=== PATIENT | female | born 1950 | race Caucasian/White ===

== ENCOUNTER → 2016-08-15 | Outpatient (REF) | payer MEDICARE, OTHER ==
[~2016-08-15] MED LIST: ALPR0.25 OR; ASPI81TA31 OR; CEFT500T OR; CRES20TA OR; DYAZ37.5 OR; FISH1000 PO; IBUP600T OR; LISI20TA5 OR; MULTIVIT PO; OMEP20TA7 OR; VICO5TAB OR; VIT D 2000 PO; ZITH500T OR; meloxicam PO; triamterene-hctz PO
== END ==
LOC: M LAB REF 12:16
PROVIDERS: ATTEND Physician Assistant Medical
DX: N30.01 Acute cystitis with hematuria (principal)

== ENCOUNTER → 2016-09-04 | Outpatient (CLI) | payer MEDICARE, OTHER ==
[2016-09-04 13:43] LABS: ALBUMIN 3.5 GM/DL (3.2-5.2); ANION GAP 5 MEQ/L (8-16); BLOOD UREA NITROGEN 17 MG/DL (7-18); CALCIUM LEVEL 9.4 MG/DL (8.8-10.2); CARBON DIOXIDE LEVEL 36 MEQ/L (21-32); CHLORIDE LEVEL 102 MEQ/L (98-107); CREATININE FOR GFR 0.94 MG/DL (0.55-1.02); GLOMERULAR FILTRATION RATE > 60.0 (>45); GLUCOSE, FASTING 92 MG/DL (80-110); MAGNESIUM LEVEL 2.2 MG/DL (1.8-2.4); POTASSIUM SERUM 4.4 MEQ/L (3.5-5.1); SODIUM LEVEL 143 MEQ/L (136-145)
== END ==
LOC: M SMT 10:13
PROVIDERS: ATTEND Internal Medicine Cardiovascular Disease
DX: I11.9 Hypertensive heart disease without heart failure (principal)

== ENCOUNTER → 2016-09-14 | Outpatient (CLI) | payer MEDICARE, OTHER ==
[2016-09-14 13:32] LABS: ALBUMIN 3.2 GM/DL (3.2-5.2); ALBUMIN/GLOBULIN RATIO 0.82 (1.00-1.93); ALKALINE PHOSPHATASE 100 U/L (45-117); ALT/SGPT 43 U/L (12-78); AST/SGOT 25 U/L (15-37); BILIRUBIN,DIRECT < 0.1 MG/DL (0.0-0.2); BILIRUBIN,TOTAL 0.3 MG/DL (0.2-1.0); CHOLESTEROL LEVEL 177 MG/DL (<200); TOTAL PROTEIN 7.1 GM/DL (6.4-8.2); TRIGLYCERIDES LEVEL 324 MG/DL (<150)
== END ==
LOC: M SMT 08:43
PROVIDERS: ATTEND Internal Medicine Cardiovascular Disease
DX: E78.2 Mixed hyperlipidemia (principal)

== ENCOUNTER → 2016-11-07 | Outpatient (CLI) | payer MEDICARE, OTHER ==
--- NOTE | 2016-11-07 16:10 | REP ---
Clinical: Chest pain. History of congestive heart failure. Comparison: 08/28/2014 . Technique: PA and lateral. Findings: The mediastinum and cardiac silhouette are normal. The lung vidal are clear and without acute consolidation, effusion, or pneumothorax. The skeletal structures are intact and normal. Impression: 1. No acute cardiopulmonary process. Signed by Marlon Hubbard MD 11/07/2016 04:01 P
== END ==
LOC: M SMT 15:30
PROVIDERS: ATTEND Internal Medicine Cardiovascular Disease
DX: I50.32 Chronic diastolic (congestive) heart failure (principal)

== ENCOUNTER → 2016-12-27 | Outpatient (CLI) | payer MEDICARE, OTHER ==
--- NOTE | 2016-12-31 12:02 | SLEEPCENT ---
DATE OF PROCEDURE: 12/27/2016 REFERRING PHYSICIAN: Apolonia Harvey Nocturnal polysomnography was performed for evaluation of sleep apnea syndrome symptoms in this patient with a history of excessive somnolence and snoring. 8 hours and 34 minutes of data were reviewed. There were 272 minutes of sleep identified. Sleep latency was prolonged at 81 minutes. Rapid eye movement (REM) sleep was not achieved. Sleep architecture showed poor progression and significant fragmentation. Overall sleep efficiency was reduced to 53%. The patient's EKG showed a sinus rhythm with an average heart rate of 78 beats per minute. Heart rate ranged 68 to 82. EEG reasonably normal waveforms for awake and sleep. There were 133 respiratory events identified of 10 seconds in duration or greater for an apnea/hypopnea index of 29.3. The events were primarily obstructive, not exclusive to posture. Arousals from respiratory events occurred 15 times per hour and oxygen desaturations were seen into the 80s. There was also significant limb activity identified. Three to four trains of 30 events. Limb movement arousal index was 25.8. IMPRESSION: Obstructive sleep apnea syndrome (G47.33). Apnea/hypopnea index 29.3. Periodic limb movement disorder (G47.61). Limb movement arousal index 25.8. RECOMMENDATION: The patient should be encouraged to return to the sleep disorder center for pressure therapy. In the interim, alcohol and sedative avoidance should be practiced and caution exercised during the operation of motor vehicles. Pending response to pressure therapy, interventions to reduce the frequency of arousals from limb activity may also be helpful.
== END ==
LOC: M SLEEP HO 19:36
PROVIDERS: ATTEND Nurse Practitioner Adult Health
DX: G47.30 Sleep apnea, unspecified (principal); R40.0 Somnolence

== ENCOUNTER → 2017-01-24 | Outpatient (CLI) | payer MEDICARE, OTHER ==
--- NOTE | 2017-01-26 09:42 | SLEEPCENT ---
DATE OF PROCEDURE: 01/24/2017 REQUESTING PROVIDER: Apolonia Harvey NP INTERPRETATION: Nocturnal polysomnography was performed for the titration of pressure therapy in this patient with obstructive sleep apnea syndrome, apnea-hypopnea index of 29. For testing, the patient was fit with a Wickr Simplus full face mask of medium size, 4 cm of water pressure were applied to the circuit and the lights were extinguished. 8 hours and 10 minutes of data were reviewed. There were 391 minutes of sleep identified. Sleep latency was prolonged at 29 minutes. Rapid eye movement (REM) latency was prolonged at 401 minutes. Sleep architecture improved late in the study. Overall efficiency was 80.9%. The patient's electrocardiogram (EKG) showed a sinus rhythm with an average heart rate of 60 beats per minute. Occasional unifocal ventricular ectopic beats were seen. Electroencephalogram (EEG) showed fairly normal waveforms for awake and sleep. No focal events were identified. Respiratory events persisted prompting an increase in CPAP to the optimal pressure of +11, with which pressure the patient slept through REM late in the study without respiratory event or oxygen desaturation. Some limb activity was noted early in the test. Limb movement arousal index on this occasion remained elevated at 37.9. IMPRESSION: 1. Obstructive sleep apnea syndrome (G47.33). 2. Periodic limb movement disorder (G47.61). Limb movement arousal index of 37.9. RECOMMENDATIONS: Nightly use of pressure therapy at 12 cm of water should be sufficient to address the patient's respiratory problems. Interventions to reduce the frequency or arousals from limb activity will likely be needed given the frequency of limb movement arousals seen.
== END ==
LOC: M SLEEP 19:34
PROVIDERS: ATTEND Nurse Practitioner Adult Health
DX: G47.33 Obstructive sleep apnea (adult) (pediatric) (principal)

== ENCOUNTER → 2017-01-26 | Outpatient (CLI) | payer MEDICARE, OTHER ==
--- NOTE | 2017-01-26 12:57 | REP ---
Sniff test: Chest fluoroscopy. 31 seconds of fluoroscopy time was utilized. History: Obstructive sleep apnea. Shortness of breath since median sternotomy for coronary artery bypass grafting. Findings: On rapid inspiration at fluoroscopy, paradoxical motion is observed in the right hemidiaphragm consistent with right diaphragmatic paralysis. Normal motion is observed in the left hemidiaphragm. Impression: Paradoxical motion of the right hemidiaphragm with sniffing. Positive sniff test. Signed by Vishal Dumont MD 01/26/2017 02:48 P
== END ==
LOC: M RAD 10:50
PROVIDERS: ATTEND Internal Medicine Pulmonary Disease
DX: G47.33 Obstructive sleep apnea (adult) (pediatric) (principal)

== ENCOUNTER → 2017-03-25 | Outpatient (REF) | payer MEDICARE, OTHER | LOC: M LAB REF 09:51 | PROVIDERS: ATTEND Physician Assistant | DX: N39.0 Urinary tract infection, site not specified (principal) ==

== ENCOUNTER → 2017-03-27 | Outpatient (CLI) | payer MEDICARE, OTHER ==
[2017-03-27 13:20] LABS: ALBUMIN 3.4 GM/DL (3.2-5.2); ALBUMIN/GLOBULIN RATIO 0.81 (1.00-1.93); ALKALINE PHOSPHATASE 132 U/L (45-117); ALT/SGPT 30 U/L (12-78); ANION GAP 4 MEQ/L (8-16); AST/SGOT 18 U/L (7-37); BILIRUBIN,TOTAL 0.5 MG/DL (0.2-1.0); BLOOD UREA NITROGEN 30 MG/DL (7-18); CALCIUM LEVEL 9.6 MG/DL (8.8-10.2); CARBON DIOXIDE LEVEL 35 MEQ/L (21-32); CHLORIDE LEVEL 102 MEQ/L (98-107); CHOLESTEROL LEVEL 152 MG/DL (<200); CREATININE FOR GFR 0.85 MG/DL (0.55-1.02); GLOMERULAR FILTRATION RATE > 60.0 (>45); GLUCOSE, FASTING 95 MG/DL (80-110); POTASSIUM SERUM 4.3 MEQ/L (3.5-5.1); SODIUM LEVEL 141 MEQ/L (136-145); TOTAL PROTEIN 7.6 GM/DL (6.4-8.2); TRIGLYCERIDES LEVEL 204 MG/DL (<150)
== END ==
LOC: M SMT 09:16
PROVIDERS: ATTEND Physician Assistant Medical
DX: E78.5 Hyperlipidemia, unspecified (principal); M81.0 Age-related osteoporosis without current pathological fracture

== ENCOUNTER → 2017-04-17 | Outpatient (REF) | payer MEDICARE | LOC: M SMT 13:08 | PROVIDERS: ATTEND Nurse Practitioner Family | DX: R31.0 Gross hematuria (principal) ==

== ENCOUNTER → 2017-05-03 | Outpatient (CLI) | payer MEDICARE, OTHER ==
[~2017-05-03] MED LIST changes: +ISOVUE-370 76% 100ML VIAL (Q9967) As Ordered ONE
--- NOTE | 2017-05-03 13:47 | REP ---
CT ABDOMEN PELVIS WITHOUT AND WITH IV CONTRAST: Without oral contrast. HISTORY: Gross hematuria. CT CONTRAST DOSE: 100 mL of Isovue [address] FINDINGS: Preliminary digital high voltage electrician radiograph shows median sternotomy wires and right upper quadrant clips. Bowel gas pattern is normal. The lung bases are clear on axial CT images. There is a small zone of linear fibrosis in the right base. The liver and the spleen are normal in size and homogeneous in texture on pre- and postcontrast images. There is mild diffuse fatty infiltration of the liver. No adrenal lesion is seen. There are clips in the gallbladder fossa. No pancreatic lesion is observed. There is an area of postoperative fat necrosis in the subcutaneous fat anterior to the inferior margin of the sternotomy. No retroperitoneal mass or adenopathy is seen. Kidneys enhance symmetrically. There is a peripheral cyst in the upper pole right kidney measuring 1.5 cm in greatest diameter. A second right upper pole cyst is also noted 1.1 cm in greatest diameter. There is a 1.1 cm cyst in the lower pole of the left kidney. No hydronephrosis is seen. No renal mass lesion is observed. No bladder mass is visible. The bladder is largely empty at the time of scanning. Delayed images show no filling defect in the urinary bladder. No filling defect is seen in the ureters or renal collecting systems. No intrarenal calculus is observed on either side. No pelvic mass or adenopathy is seen. Small and large intestinal bowel loops are normal in the abdomen and pelvis. No uterine or ovarian lesion is seen. Bone window settings show degenerative changes in the lumbar spine. No bony destructive lesion. IMPRESSION: There are several small renal cysts noted affecting both kidneys. No intrarenal calculus is seen. No hydronephrosis or mass lesion is observed. Signed by Vishal Dumont MD 05/03/2017 03:59 P
== END ==
LOC: M RAD 09:29
PROVIDERS: ATTEND Nurse Practitioner Family
DX: R31.0 Gross hematuria (principal); N28.1 Cyst of kidney, acquired
CPT/HCPCS: 74178; Q9967

== ENCOUNTER → 2017-05-18 | Outpatient (CLI) | payer MEDICARE, OTHER ==
[2017-05-18 18:17] LABS: CREATININE FOR GFR 0.89 MG/DL (0.55-1.02); GLOMERULAR FILTRATION RATE > 60.0 (>45)
[2017-05-18 18:17] LABS: BLOOD UREA NITROGEN 24 MG/DL (7-18)
== END ==
LOC: M SMT 10:02
DX: R91.8 Other nonspecific abnormal finding of lung field (principal)
CPT/HCPCS: 82565

== ENCOUNTER → 2017-05-21 | Outpatient (CLI) | payer MEDICARE, OTHER ==
[~2017-05-21] MED LIST changes: -ALPR0.25 OR; -ASPI81TA31 OR; -CEFT500T OR; -CRES20TA OR; -DYAZ37.5 OR; -FISH1000 PO; -IBUP600T OR; +ISOVUE-370 76% 100ML VIAL (Q9967) As Ordered; -ISOVUE-370 76% 100ML VIAL (Q9967) As Ordered ONE; -LISI20TA5 OR; -MULTIVIT PO; -OMEP20TA7 OR; -VICO5TAB OR; -VIT D 2000 PO; -ZITH500T OR; -meloxicam PO; -triamterene-hctz PO
== END ==
LOC: M RAD 09:14
DX: R91.8 Other nonspecific abnormal finding of lung field (principal)
CPT/HCPCS: Q9967

== ENCOUNTER → 2017-07-19 | Outpatient (CLI) | payer MEDICARE, OTHER ==
[2017-07-19 14:11] LABS: BASO % 0.6 % (0.0-1.0); EOS # 0.2 10^3/uL (0.0-0.50); EOS % 3.4 % (0.0-3.0); HEMATOCRIT 41.5 % (36.0-47.0); HEMOGLOBIN 13.3 g/dl (12.0-16.0); IMMATURE GRANULOCYTE % 0.4 % (0-3.0); LYMPH # 1.8 10^3/uL (1.5-4.5); LYMPH % 25.8 % (24.0-44.0); MEAN CORPUSCULAR HEMOGLOBIN 29.6 pg (27.0-33.0); MEAN CORPUSCULAR VOLUME 92.2 fl (80.0-96.0); MONO # 0.5 10^3/uL (0.0-0.8); NEUTROPHILS # 4.4 10^3/uL (1.8-7.7); NEUTROPHILS % 62.8 % (36.0-66.0); PLATELET COUNT, AUTOMATED 274 10^3/uL (150-450); RED CELL DISTRIBUTION WIDTH 14.9 % (11.5-14.5)
== END ==
LOC: M SMT 12:05
DX: R07.2 Precordial pain (principal)
CPT/HCPCS: 85027

== ENCOUNTER → 2017-10-24 | Outpatient (REF) | payer MEDICARE, OTHER | LOC: M LAB REF 12:26 | DX: N39.0 Urinary tract infection, site not specified (principal) | CPT/HCPCS: 87086 ==

== ENCOUNTER → 2018-02-11 | Outpatient (CLI) | payer MEDICARE, OTHER ==
[2018-02-11 14:31] LABS: ALBUMIN 3.5 GM/DL (3.2-5.2); ALBUMIN/GLOBULIN RATIO 0.92 (1.00-1.93); ALKALINE PHOSPHATASE 110 U/L (45-117); ALT/SGPT 47 U/L (12-78); ANION GAP 6 MEQ/L (8-16); AST/SGOT 28 U/L (7-37); BILIRUBIN,TOTAL 0.5 MG/DL (0.2-1.0); BLOOD UREA NITROGEN 23 MG/DL (7-18); CALCIUM LEVEL 9.5 MG/DL (8.8-10.2); CARBON DIOXIDE LEVEL 32 MEQ/L (21-32); CHLORIDE LEVEL 105 MEQ/L (98-107); CHOLESTEROL LEVEL 131 MG/DL (<200); CHOLESTEROL RISK RATIO 4.366 (<5); CREATININE FOR GFR 0.88 MG/DL (0.55-1.30); GLOMERULAR FILTRATION RATE > 60.0 (>45); GLUCOSE, FASTING 86 MG/DL (70-100); HDL CHOLESTEROL 30 MG/DL (>40); LDL CHOLESTEROL 63 MG/DL (<100); NON-HDL-C 101 MG/DL; POTASSIUM SERUM 4.4 MEQ/L (3.5-5.1); SODIUM LEVEL 143 MEQ/L (136-145); TOTAL PROTEIN 7.3 GM/DL (6.4-8.2); TRIGLYCERIDES LEVEL 188 MG/DL (<150)
[2018-02-11 14:38] LABS: TOTAL 25(OH) VITAMIN D 36.3 NG/ML (30.0-100.0)
== END ==
LOC: M SMT 09:40
DX: I10 Essential (primary) hypertension (principal); M81.0 Age-related osteoporosis without current pathological fracture
CPT/HCPCS: 80053

== ENCOUNTER → 2018-03-22 | Outpatient (REF) | payer MEDICARE, OTHER | LOC: M LAB REF 12:43 | DX: R35.0 Frequency of micturition (principal) | CPT/HCPCS: 87086 ==

== ENCOUNTER → 2018-06-11 | Outpatient (CLI) | payer MEDICARE, OTHER ==
[~2018-06-11] MED LIST changes: +ALPR0.25 OR; +ASPI81TA31 OR; +CEFT500T OR; +CRES20TA OR; +DYAZ37.5 OR; +FISH1000 PO; +IBUP600T OR; -ISOVUE-370 76% 100ML VIAL (Q9967) As Ordered; +LISI20TA5 OR; +MULTIVIT PO; +OMEP20TA7 OR; +VICO5TAB OR; +VIT D 2000 PO; +ZITH500T OR; +meloxicam PO; +triamterene-hctz PO
[2018-06-11 13:34] LABS: BASO # 0.1 10^3/uL (0.0-0.2); BASO % 0.9 % (0.0-1.0); EOS # 0.3 10^3/uL (0.0-0.50); EOS % 4.4 % (0.0-3.0); HEMATOCRIT 41.9 % (36.0-47.0); HEMOGLOBIN 13.2 g/dl (12.0-15.5); LYMPH # 1.6 10^3/uL (1.5-4.5); MEAN CORPUSCULAR HEMOGLOBIN 30.5 pg (27.0-33.0); MEAN CORPUSCULAR HGB CONC 31.5 g/dl (32.0-36.5); MEAN CORPUSCULAR VOLUME 96.8 fl (80.0-96.0); MONO # 0.5 10^3/uL (0.0-0.8); MONO % 6.8 % (0.0-5.0); NEUTROPHILS # 4.5 10^3/uL (1.8-7.7); NEUTROPHILS % 64.8 % (36.0-66.0); PLATELET COUNT, AUTOMATED 236 10^3/uL (150-450); RED BLOOD COUNT 4.33 10^6/uL (4.00-5.40); WHITE BLOOD COUNT 6.9 10^3/uL (4.0-10.0)
[2018-06-11 13:49] LABS: ALBUMIN 3.3 GM/DL (3.2-5.2); ALT/SGPT 48 U/L (12-78); BILIRUBIN,TOTAL 0.4 MG/DL (0.2-1.0); BLOOD UREA NITROGEN 23 MG/DL (7-18); CALCIUM LEVEL 8.9 MG/DL (8.8-10.2); CARBON DIOXIDE LEVEL 31 MEQ/L (21-32); CHLORIDE LEVEL 103 MEQ/L (98-107); CHOLESTEROL LEVEL 133 MG/DL (<200); CHOLESTEROL RISK RATIO 4.925 (<5); CREATININE FOR GFR 0.89 MG/DL (0.55-1.30); GLOMERULAR FILTRATION RATE > 60.0 (>39); GLUCOSE, FASTING 103 MG/DL (70-100); HDL CHOLESTEROL 27 MG/DL (>40); LDL CHOLESTEROL 65 MG/DL (<100); NON-HDL-C 106 MG/DL; POTASSIUM SERUM 4.5 MEQ/L (3.5-5.1); SODIUM LEVEL 142 MEQ/L (136-145); TOTAL 25(OH) VITAMIN D 50.2 NG/ML (30.0-100.0); TOTAL PROTEIN 7.3 GM/DL (6.4-8.2); TRIGLYCERIDES LEVEL 203 MG/DL (<150)
== END ==
LOC: M SMT 09:39
PROVIDERS: ATTEND Physician Assistant Medical
DX: I10 Essential (primary) hypertension (principal); M81.0 Age-related osteoporosis without current pathological fracture; R42 Dizziness and giddiness

== ENCOUNTER → 2018-06-19 | Outpatient (CLI) | payer MEDICARE, OTHER ==
--- NOTE | 2018-06-19 15:32 | REP ---
Chest fluoroscopy: Sniff test. History: Previous sniff test on January 26, 2017 was felt to show paradoxical movement of the right hemidiaphragm. The patient is status post prior median sternotomy. Fluoroscopy time is 0.3 minutes. Findings: On today's imaging the right hemidiaphragm was felt to move in the normal direction although with decreased amplitude compared to the left during inspiration. This represents significant improvement. Impression: Decreased amplitude but normal direction of right diaphragmatic motion with inspiration. Normal left diaphragmatic motion. Electronically Signed by Vishal Dumont MD 06/19/2018 07:19 P
== END ==
LOC: M RAD 12:15
PROVIDERS: ATTEND Internal Medicine Pulmonary Disease
DX: J45.40 Moderate persistent asthma, uncomplicated (principal)

== ENCOUNTER 2018-09-23 11:33 | Emergency (ER) | payer MEDICARE, OTHER ==
[~2018-09-23] VITALS: Ht 167.6 cm; Wt 131.8 kg
[2018-09-23] MEDS ORDERED: CHLO125TA (11:51)
[2018-09-23] MEDS ORDERED: SPIR-10 (11:51)
[2018-09-23] MEDS ORDERED: ELIQ5TAB (11:51)
[2018-09-23] MEDS ORDERED: TRAM50TA2 (11:51)
[2018-09-23] MEDS ORDERED: ATOR40TA75 PO (11:51)
[2018-09-23] MEDS ORDERED: METO50TA7 (11:51)
[2018-09-23] MEDS ORDERED: LOSA50TA88 (11:51)
[2018-09-23] MEDS ORDERED: ALEN70TA74 (11:51)
[2018-09-23 12:09] LABS: BASO # 0.1 10^3/uL (0.0-0.2); BASO % 0.7 % (0.0-1.0); EOS # 0.2 10^3/uL (0.0-0.50); EOS % 2.9 % (0.0-3.0); HEMATOCRIT 42.5 % (36.0-47.0); LYMPH # 1.5 10^3/uL (1.5-4.5); LYMPH % 21.7 % (24.0-44.0); MEAN CORPUSCULAR HEMOGLOBIN 31.7 pg (27.0-33.0); MEAN CORPUSCULAR HGB CONC 32.9 g/dl (32.0-36.5); MEAN CORPUSCULAR VOLUME 96.4 fl (80.0-96.0); MONO # 0.4 10^3/uL (0.0-0.8); MONO % 6.4 % (0.0-5.0); NEUTROPHILS # 4.7 10^3/uL (1.8-7.7); PLATELET COUNT, AUTOMATED 256 10^3/uL (150-450); RED BLOOD COUNT 4.41 10^6/uL (4.00-5.40); WHITE BLOOD COUNT 6.9 10^3/uL (4.0-10.0)
--- NOTE | 2018-09-23 12:17 | ECGEPIP ---
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
[2018-09-23 12:35] LABS: BLOOD UREA NITROGEN 22 MG/DL (7-18); CALCIUM LEVEL 8.9 MG/DL (8.8-10.2); CARBON DIOXIDE LEVEL 33 MEQ/L (21-32); CHLORIDE LEVEL 106 MEQ/L (98-107); CK-MB VALUE MASS < 1.0 NG/ML (<3.6); CPK CREATINE PHOSPHOKINASE 55 U/L (26-192); CREATININE FOR GFR 0.89 MG/DL (0.55-1.30); GLOMERULAR FILTRATION RATE > 60.0 (>39); GLUCOSE, FASTING 97 MG/DL (70-100); MB/CK RELATIVE INDEX 1.82 (< OR =4); NT-PRO BNP 35 PG/ML (<125); POTASSIUM SERUM 3.6 MEQ/L (3.5-5.1); SODIUM LEVEL 143 MEQ/L (136-145); TROPONIN I < 0.02 NG/ML (< 0.10)
--- NOTE | 2018-09-23 12:40 | REP ---
Chest one-view HISTORY: Chest pain Comparison: 07/19/2017 The lungs are clear. The heart is normal in size. The pulmonary vasculature is normal in appearance. Impression: No acute disease. Electronically Signed by Gómez Almanza MD 09/23/2018 12:32 P
[2018-09-23] MEDS ORDERED: ISOVUE-370 76% 100ML VIAL (Q9967) As Ordered ONE (13:35)
--- NOTE | 2018-09-23 14:42 | REP ---
CT pulmonary angiogram: With IV contrast. History: Rule out pulmonary embolism. Comparison studies: Comparison chest CT May 21, 2017. Contrast dose: 75 mL of Isovue [address] technique: Helical scanning is acquired and overlapping 1.5 mm and contiguous 3 mm axial images are reformatted. In addition, maximum intensity projection and multiplanar re-formation images are generated in sagittal and coronal imaging projections. CT pulmonary angiographic findings: There is good opacification of the pulmonary arterial tree. There is no CT evidence of pulmonary embolus. Thoracic aorta shows vascular calcification but no evidence of aneurysm or dissection. Prior median sternotomy wires are seen. There is no evidence of pleural or pericardial effusion. No hilar or mediastinal mass or adenopathy is observed. No adrenal lesion is seen. The gallbladder is surgically absent. There are multiple tiny stable subcentimeter pulmonary nodules. No new pulmonary opacity is seen. Impression: No CT evidence of pulmonary embolus. Vascular calcification. Prior sternotomy. Stable pulmonary nodules. No acute changes. Electronically Signed by Vishal Dumont MD 09/23/2018 07:31 P
[2018-09-23 15:26] LABS: CK-MB VALUE MASS < 1.0 NG/ML (<3.6); CPK CREATINE PHOSPHOKINASE 56 U/L (26-192); MB/CK RELATIVE INDEX 1.79 (< OR =4); TROPONIN I < 0.02 NG/ML (< 0.10)
[2018-09-23 15:45] VITALS: BP 140/67
[2018-09-23] MEDS ORDERED: PROT1TAB2 PO (16:10)
--- NOTE | 2018-09-24 07:19 | ECGEPIP ---
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
== END 2018-09-23 16:27 | disposition home or self-care (01) ==
LOC: M ED 11:33
DX: R07.89 Other chest pain (principal); I48.91 Unspecified atrial fibrillation; I25.10 Atherosclerotic heart disease of native coronary artery without angina pectoris; I50.9 Heart failure, unspecified; G47.33 Obstructive sleep apnea (adult) (pediatric); K21.9 Gastro-esophageal reflux disease without esophagitis; F41.9 Anxiety disorder, unspecified; Z95.1 Presence of aortocoronary bypass graft; Z88.7 Allergy status to serum and vaccine; Z79.899 Other long term (current) drug therapy; Z79.82 Long term (current) use of aspirin; Z79.01 Long term (current) use of anticoagulants
CPT/HCPCS: 71045; 71275; 80048; 82550; 82553; 83880; 84484; 85025; 93005; 93041; 94760; 99285; Q9967

== ENCOUNTER → 2019-01-27 | Outpatient (CLI) | payer MEDICARE, OTHER ==
[~2019-01-27] MED LIST changes: +ALEN70TA74; +ATOR40TA75 PO; +CHLO125TA; +ELIQ5TAB; +LOSA50TA88; +METO50TA7; +PROT1TAB2 PO; +SPIR-10; +TRAM50TA2
[2019-01-27 14:21] LABS: HEMOGLOBIN A1c 5.3 %
[2019-01-27 14:24] LABS: BLOOD UREA NITROGEN 21 MG/DL (7-18); CALCIUM LEVEL 9.5 MG/DL (8.8-10.2); CARBON DIOXIDE LEVEL 31 MEQ/L (21-32); CHLORIDE LEVEL 105 MEQ/L (98-107); CREATININE FOR GFR 0.91 MG/DL (0.55-1.30); FREE T4 1.04 NG/DL (0.76-1.46); GLOMERULAR FILTRATION RATE > 60.0 (>39); GLUCOSE, FASTING 96 MG/DL (70-100); POTASSIUM SERUM 4.5 MEQ/L (3.5-5.1); SODIUM LEVEL 143 MEQ/L (136-145)
== END ==
LOC: M SMT 10:56
PROVIDERS: ATTEND Physician Assistant Medical
DX: R94.6 Abnormal results of thyroid function studies (principal); R73.01 Impaired fasting glucose

== ENCOUNTER → 2019-07-09 | Outpatient (CLI) | payer MEDICARE, OTHER ==
--- NOTE | 2019-07-09 14:55 | REP ---
CAROTID ULTRASOUND: Real-time ultrasound evaluation and duplex Doppler interrogation of the extracranial carotid vasculature is performed. Moderate plaquing and narrowing is seen in the carotid bulbs bilaterally extending into the internal and external carotid arteries. There is mild elevation with peak systolic velocity in the right internal carotid artery suggesting stenosis in the lower aspect of the 50-79% range. Luminal narrowing on the left is less than 50% with on elevated peak systolic velocity. There is normal direction of flow in both vertebral arteries. There are nodules in the right lobe of the thyroid measuring up to 1 cm in diameter. RIGHT LEFT Peak systolic velocity ICA 128 cm/s 96.6 cm/s End diastolic velocity ICA 29.4 cm/s 29.1 cm/s Peak systolic velocity CCA 64.1 cm/s 82.6 cm/s Peak systolic velocity ECA 302 cm/s 215 cm/s ICA/CCA ratio 2.0 1.17 IMPRESSION: Moderate plaquing and narrowing in both carotid bulbs and internal carotid arteries. Findings suggesting stenosis of the right ICA 50-79%, in the lower aspect of that range. Luminal narrowing left ICA less than 50%. Right thyroid nodules measuring up to 1 cm in diameter. Recommend followup thyroid ultrasound. Electronically Signed by Rogerio Odonnell MD 07/09/2019 03:28 P
== END ==
LOC: M RAD 10:31
PROVIDERS: ATTEND Physician Assistant
DX: I65.23 Occlusion and stenosis of bilateral carotid arteries (principal)

== ENCOUNTER → 2019-07-22 | Outpatient (CLI) | payer MEDICARE, OTHER ==
[~2019-07-22] MED LIST changes: +ISOVUE-370 76% 100ML VIAL (Q9967) As Ordered ONE
--- NOTE | 2019-07-22 13:35 | REP ---
CT chest without contrast: Low-dose screening exam. History: Nicotine dependence. Comparison chest CT studies are reviewed. The most recent of these is from September 23, 2018. The most remote is from November 27, 2003. CT findings: There are multiple tiny subcentimeter calcified and noncalcified pulmonary nodules which are unchanged from prior CT studies dating back to September 24, 2014. No new pulmonary nodule is appreciated. Vascular calcification is observed. Impression: Lung-RADS category 2 findings. Repeat screening study recommended in 1 year. Electronically Signed by Vishal Dumont MD 07/22/2019 03:44 P
== END ==
LOC: M RAD 10:02
PROVIDERS: ATTEND Internal Medicine Pulmonary Disease
DX: F17.218 Nicotine dependence, cigarettes, with other nicotine-induced disorders (principal)

== ENCOUNTER → 2019-07-22 | Outpatient (CLI) | payer MEDICARE, OTHER ==
[~2019-07-22] MED LIST changes: -ISOVUE-370 76% 100ML VIAL (Q9967) As Ordered ONE
--- NOTE | 2019-07-22 11:56 | REP ---
THYROID SONOGRAPHY: HISTORY: Nontoxic single thyroid nodule. FINDINGS: Thyroid isthmus is 0.3 cm in thickness. Right lobe dimensions by ultrasound are 4.5 x 2.1 x 1.5 cm. Left lobe measures 3.8 x 1.7 x 1.7 cm. There are two complex but predominantly cystic nodule in the right thyroid lobe. These measure 1.2 x 0.7 x 0.8 cm and 0.5 x 0.7 x 0.5 cm respectively. There is a 0.3 cm cyst in the left lobe and a 0.4 cm hypoechoic nodule is seen adjacent to this in the left lobe. No sonographically suspicious features in any of these foci. IMPRESSION: Multinodular thyroid. Electronically Signed by Vishal Dumont MD 07/22/2019 12:57 P
== END ==
LOC: M RAD 09:59
PROVIDERS: ATTEND Physician Assistant
DX: E04.1 Nontoxic single thyroid nodule (principal)

== ENCOUNTER → 2019-09-23 | Outpatient (REF) | payer OTHER ==
[~2019-09-23] MED LIST changes: -ALEN70TA74; +ALEN70TA82
== END ==
LOC: M LAB REF 13:15
PROVIDERS: ATTEND Physical Medicine & Rehabilitation
DX: M47.817 Spondylosis without myelopathy or radiculopathy, lumbosacral region (principal)

== ENCOUNTER → 2019-12-11 | Outpatient (REF) | payer OTHER ==
[~2019-12-11] MED LIST changes: +ALEN70TA74; -ALEN70TA82
[2020-01-06 22:45] LABS: PLATELET COUNT, AUTOMATED 253 10^3/uL (150-450)
[2020-01-06 22:46] LABS: INR 1.19; PARTIAL THROMBOPLASTIN TIME 37.9 SECONDS (25.0-38.4); PROTHROMBIN TIME 15.4 SECONDS (11.8-14.0)
== END ==
LOC: M LABSMT 09:34
PROVIDERS: ATTEND Physician Assistant
DX: Z01.812 Encounter for preprocedural laboratory examination (principal); M47.817 Spondylosis without myelopathy or radiculopathy, lumbosacral region
CPT/HCPCS: 36415; 85027; 85610; 85730; U0002

== ENCOUNTER → 2020-01-15 | Outpatient (REF) | payer MEDICARE, OTHER ==
[2020-01-15 17:25] LABS: ALBUMIN 3.2 GM/DL (3.2-5.2); ALT/SGPT 36 U/L (12-78); BILIRUBIN,TOTAL 0.4 MG/DL (0.2-1.0); BLOOD UREA NITROGEN 21 MG/DL (7-18); CARBON DIOXIDE LEVEL 31 MEQ/L (21-32); CHLORIDE LEVEL 107 MEQ/L (98-107); CHOLESTEROL LEVEL 142 MG/DL (<200); CREATININE FOR GFR 0.93 MG/DL (0.55-1.30); GLOMERULAR FILTRATION RATE > 60.0 (>39); GLUCOSE, FASTING 90 MG/DL (70-100); HDL CHOLESTEROL 31 MG/DL (>40); LDL CHOLESTEROL 73 MG/DL (<100); NON-HDL-C 111 MG/DL; POTASSIUM SERUM 4.2 MEQ/L (3.5-5.1); SODIUM LEVEL 143 MEQ/L (136-145); TOTAL PROTEIN 7.2 GM/DL (6.4-8.2); TRIGLYCERIDES LEVEL 188 MG/DL (<150)
== END ==
LOC: M LABDRWAD 08:42
PROVIDERS: ATTEND Physician Assistant Medical
DX: E78.2 Mixed hyperlipidemia (principal)

== ENCOUNTER → 2020-01-20 | Outpatient (REF) | payer MEDICARE, OTHER ==
[2020-01-20 18:43] LABS: HEMATOCRIT 44.7 % (36.0-47.0); HEMOGLOBIN 14.7 g/dl (12.0-15.5); MEAN CORPUSCULAR HEMOGLOBIN 30.8 pg (27.0-33.0); MEAN CORPUSCULAR HGB CONC 32.9 g/dl (32.0-36.5); MEAN CORPUSCULAR VOLUME 93.7 fl (80.0-96.0); PLATELET COUNT, AUTOMATED 288 10^3/uL (150-450); RED BLOOD COUNT 4.77 10^6/uL (4.00-5.40)
== END ==
LOC: M LABDRWAD 17:47
PROVIDERS: ATTEND Physician Assistant
DX: I48.0 Paroxysmal atrial fibrillation (principal); Z79.01 Long term (current) use of anticoagulants

== ENCOUNTER → 2020-02-22 | Outpatient (CLI) | payer OTHER | LOC: M LABSMTC 08:27 | PROVIDERS: ATTEND Physical Medicine & Rehabilitation | DX: Z20.828 Contact with and (suspected) exposure to other viral communicable diseases (principal) ==

== ENCOUNTER → 2020-04-13 | Outpatient (CLI) | payer BC, OTHER ==
--- NOTE | 2020-04-16 04:50 | REP ---
INDICATION: CLAUDICATION COMPARISON: None. TECHNIQUE: Real time childs scale and color Doppler evaluation of the bilateral lower extremity arterial vasculature using linear high frequency transducer. FINDINGS: The right common iliac artery demonstrates biphasic wave pattern and velocity at 125 cm/sec while the left common iliac artery demonstrates a monophasic wave pattern with velocity at 96 cm/sec suggesting asymmetric atherosclerotic changes. Right external iliac artery demonstrates biphasic wave pattern and velocity at 116 cm/sec while the left external iliac artery demonstrates a tardus parvus wave pattern and velocity at 41 cm/sec suggesting asymmetric atherosclerotic changes and likely area of stenosis. Right lower extremity demonstrates moderate atheromatous plaquing with primarily biphasic arterial wave patterns noted. The right anterior tibial artery is not visualized. No focal areas of stenosis or occlusion are identifiable. Left lower extremity demonstrates moderate atheromatous plaquing along with monophasic wave patterns having a tardus parvus appearance from the level of the common femoral artery with significantly decreased velocities suggesting upstream disease likely involving the iliac artery. The left anterior tibial artery is not visualized and the dorsalis pedis artery is not identifiable. No focal area of stenosis or occlusion is appreciated. Peak systolic velocities (cm/sec) Common femoral artery: Right 103; Left 43 Profunda femoris: Right 95; Left 36 SFA (proximal): Right 115; Left 51 SFA (mid): Right 92; Left 41 SFA (distal): Right 120; Left 37 Popliteal artery: Right 57; Left 34 JANE (prox.): Right not visualized; Left not visualized Tibioperoneal trunk: Right 45; Left 24 COLLECTION AGENT (prox.): Right 41; Left 20 COLLECTION AGENT (distal): Right 86; Left 21 JANE (distal): Right not visualized; Left not visualized IMPRESSION: Lower extremities demonstrate bilateral atheromatous changes (left greater than right). Asymmetric atherosclerotic disease primarily involving the left iliac artery. <Electronically signed by Marlon Hubbard > 04/16/20 1024
--- NOTE | 2020-04-16 04:56 | REP ---
INDICATION: OCCLUSION COMPARISON: 07/09/2019 TECHNIQUE: Odonnell scale and color Doppler evaluation using linear high frequency transducer Findings: FINDINGS: Two-dimensional odonnell scale and color images demonstrate significant calcified atheromatous plaquing primarily involving the carotid bulbs and proximal portions of the internal and external carotid arteries (right greater than left). Doppler evaluation demonstrates arterial wave patterns with significant spectral broadening bilaterally. ICA peak systolic velocity: Right 188 cm/s; Left 96.7 cm/s ICA diastolic velocity: Right 44.4 cm/s; Left 28.3 cm/s ECA peak systolic velocity: Right 284 cm/s; Left 229 cm/s CCA peak systolic velocity: Right 92.6 cm/s; Left 137 cm/s ICA/CCA ratio: Right 2.0 cm/s; Left 0.7 cm/s IMPRESSION: 1. Significant atheromatous plaquing noted bilaterally. Narrowing through the right carotid bulb and proximal internal carotid artery approaches the 69% range while narrowing through the left carotid bulb and proximal internal carotid artery falls within the lower spectrum of the 50-69% range. 2. Significant narrowing through the right external carotid artery is also identified and similar to prior examination. 3. Incidental stable hypoechoic right thyroid nodule measures 1.2 cm. <Electronically signed by Marlon Hubbard > 04/16/20 045
== END ==
LOC: M RAD 12:39
PROVIDERS: ATTEND Physician Assistant
DX: I70.213 Atherosclerosis of native arteries of extremities with intermittent claudication, bilateral legs (principal); I65.23 Occlusion and stenosis of bilateral carotid arteries

== ENCOUNTER → 2020-04-19 | Outpatient (CLI) | payer BC, OTHER ==
[2020-04-19 14:03] LABS: BLOOD UREA NITROGEN 19 MG/DL (7-18); CREATININE FOR GFR 0.93 MG/DL (0.55-1.30); GLOMERULAR FILTRATION RATE > 60.0 (>39)
== END ==
LOC: M PLALAB 09:41
PROVIDERS: ATTEND Physician Assistant
DX: M48.061 Spinal stenosis, lumbar region without neurogenic claudication (principal)

== ENCOUNTER → 2020-05-15 | Outpatient (CLI) | payer SELFPAY | LOC: M LABSMTC 08:26 | PROVIDERS: ATTEND Pediatrics | DX: Z20.828 Contact with and (suspected) exposure to other viral communicable diseases (principal) ==

== ENCOUNTER → 2020-06-01 | Outpatient (CLI) | payer MEDICARE, OTHER ==
[~2020-06-01] MED LIST changes: -ALEN70TA74; +ALEN70TA82; +ISOVUE-300 61% 50ML VIAL As Ordered ONE; +LIDOCAINE 1% MDV 20ML VIAL As Ordered ONE; +MIDAZOLAM INJ 2MG/2ML VIAL (J2250 PER 1MG) As Ordered ONE; +fentaNYL 100 MCG/2 ML INJECTION (J3010) As Ordered ONE
[2020-06-01 07:58] LABS: ALBUMIN 3.1 GM/DL (3.2-5.2); BILIRUBIN,TOTAL 0.4 MG/DL (0.2-1.0); CREATININE FOR GFR 1.18 MG/DL (0.55-1.30); GLOMERULAR FILTRATION RATE 48.1 (>39); POTASSIUM SERUM 3.8 MEQ/L (3.5-5.1); TOTAL PROTEIN 7.5 GM/DL (6.4-8.2)
[2020-06-01 08:06] LABS: HEMATOCRIT 40.4 % (36.0-47.0); HEMOGLOBIN 12.6 g/dl (12.0-15.5); MEAN CORPUSCULAR HEMOGLOBIN 29.9 pg (27.0-33.0); MEAN CORPUSCULAR HGB CONC 31.2 g/dl (32.0-36.5); MEAN CORPUSCULAR VOLUME 95.7 fl (80.0-96.0); PLATELET COUNT, AUTOMATED 246 10^3/uL (150-450); RED BLOOD COUNT 4.22 10^6/uL (4.00-5.40); WHITE BLOOD COUNT 6.8 10^3/uL (4.0-10.0)
--- NOTE | 2020-06-01 09:37 | ROOPDOC ---
[facility] Report Of Operation Report of Operation DATE OF PROCEDURE: 06/01/20 PREPROCEDURE DIAGNOSES: Atherosclerosis of the [place] arteries placed on limiting claudication POSTPROCEDURE DIAGNOSES: Same PROCEDURE: 1. Ultrasound-guided access right and left femoral arteries 2. Aorto iliofemoral arteriogram 3. Left lower extremity arteriogram with runoff from left femoral sheath access 4. Attempt to cross left common iliac artery occlusion both antegrade and retrograde, aborted 5. Angioplasty right distal aorta and common iliac artery was 6 x 100 Jasper balloon 6. Balloon-expandable stent placement right common iliac artery extending into external iliac artery with 9 x 57 express stent distally and 10 x 57 express stent proximal 7. Completion arteriograms 8. Mynx closure right and left common femoral artery SURGEON: Fermín Pastor MD ANESTHESIA: Local anesthesia 12 mL lidocaine. Moderate intravenous conscious sedation was supervised by Dr. Pastor. The patient was independently monitored by a registered nurse assigned to the Department of radiology using automated blood pressure, EKG, and pulse oximetry. The detailed sedation record is permanently stored in the hospital information system. The following is a brief sedation record: Start time 07:49, stop time 08:53, Versed 1 mg IV, fentanyl 50 g IV, heparin 3000 units IV. CONTRAST: 38 mL Isovue-300 INDICATION FOR PROCEDURE: This is a very pleasant 69-year-old patient with atherosclerosis of the [place] arteries and lifestyle limiting claudication, short distance with long recovery. She also has neuropathic pain from lower back issues, but I believe based on her ultrasound findings that are considerable amount of her discomfort is due to arterial insufficiency. Risks benefits and alternatives to a left lower extremity arteriogram and intervention were explained to the patient and she is agreeable to proceed. Informed consent was obtained. INTERPRETATION: 1. The distal aorta is heavily calcified and ectatic and slightly narrow at the bifurcation. There is runoff through the right iliac system, but there is heavy plaque and 60-70% stenosis in the common iliac artery near the origin, 2 cm from the origin, at the distal common iliac artery, and also a few areas of 50% stenosis in the proximal and mid external iliac artery. On the left, the common iliac artery is patent at its origin but heavily calcified and narrow. It then has a focal occlusion of approximately 3 cm with bulky heavy calcified plaque. Distal to this, there is flow through the distal common iliac artery and external iliac artery. On both sides, the hypogastric arteries are diseased at their origins but otherwise patent. 2. After attempts to cross the chronic total occlusion in the left common iliac artery antegrade and retrograde, no extravasation was noted completion arteriogram. 3. Left lower extremity runoff reveals there is a patent common femoral artery with mild plaque in narrowing and good runoff into the profunda and superficial femoral artery. No significant narrowing or disease is noted in the superficial femoral artery. 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 There is a branch from the peroneal artery that could be the origin of the anterior tibial artery, but it ends into small branches in the upper calf. I'm not able to visualize the anterior tibial artery in its normal anatomic location. The peroneal and posterior tibial artery on the right have good runoff to the distal foot. 4. After angioplasty of the right iliac system to predilated, there is improved luminal diameter and no extravasation. After stenting from the distal aorta to the mid external iliac artery with balloon-expandable stent, there is widely patent flow with no residual stenosis, no extravasation, and rapid flow through to the right femoral system. REPORT OF OPERATION: Patient was brought to the angiographic suite in stable condition. Her bilateral groins were prepped and draped in a sterile fashion. A timeout was performed. Sedation was administered without complication. Local anesthesia was administered to skin and subcutaneous tissue over the right common femoral artery. A microneedle was used to access the artery under ultrasound guidance. A wire was passed through this access and the needle was removed and a 4 [place] sheath was placed and flushed with saline. Glidewire was advanced into the distal aorta under fluoroscopic guidance and a flushing catheter was advanced into the distal aorta. An aorto iliofemoral arteriogram was performed, please interpretation above. For 20 minutes, we attempted to go up and over the bifurcation cross the occlusion antegrade in the left common iliac artery, but eventually this was aborted. We then anesthetized left groin with local anesthesia and access to a similar fashion with a 4 [place] sheath. We attempted to cross the occlusion in the left common iliac artery with a Glidewire and Glasford catheter. Unfortunately, we could not cross through in the true lumen, and once subintimal, we could not reenter the true lumen at the aorta proximal to the occlusion. After another 20 minutes of efforts, quick arteriogram confirmed that we still had flow through the distal common iliac artery and external iliac artery and the left, and no extravasation after attempts to cross. We then performed a runoff of the left lower extremity through the existing 4 [place] sheath, please see interpretation above. We then exchange the sheath for 5 [place] sheath and a Mynx closure device was deployed and pressure was held for 15 minutes for good hemostasis. On the right, we predilated the iliac system with a 6 x 100 balloon after exchange the sheath for 7 [place] sheath. After predilation, there was improvement and luminal diameter sufficient for balloon-expandable stent placement. We first placed a 9 x 57 express stent from the mid external iliac artery to the distal common iliac artery. Following this we extended it with a 1 cm overlap through the common iliac artery into the distal aorta with a 10 x 57 express stent. There was a dramatic improvement of flow through the right iliac system following balloon- expandable stenting and no extravasation was noted. We then to place a Mynx closure device on the right with good hemostasis. Pressure was held and sterile dressings were applied. The patient tolerated the procedure well. There were no complications. We noted fragile skin around her dressings postprocedure, and this was carefully cleaned and a thin layer bacitracin was laced around her dressings to help soothe the skin. The patient has some skin maceration from moisture, likely a mild fungal infection due to a large pannus, we've asked her to address this with her primary doctor. She is agreeable. She was taken to recovery in stable condition. ESTIMATED BLOOD LOSS: Approximately 5 mL. COMPLICATIONS: None. PLAN: It is okay for the patient to resume her home diet and medications, including eliquis. No lifting greater than 5 pounds or strenuous exercise for 48 hours. We will see the patient back in clinic to discuss options for a right to left femoral-femoral bypass. The patient has a bit of increased risk due to obesity and poor skin integrity in the groins, but overall I think she will do well with the procedure. We have significantly improved her inflow on the right, and she has good outflow on the left. The patient has significant neuropathic pain from her lower back issues, but if we can improve her blood flow, hopefully her ambulation will improve. This will not eliminate all of her pain and discomfort, but it should make a significant difference. I discussed this with the patient and her family and we will go over this again in clinic. We manuel reciate the opportunity to participate in the care of this patient. FERMÍN PASTOR MD Jun 01, 2020 09:37
[2020-06-01 13:00] VITALS: BP 139/55
== END ==
LOC: M IRPRO 06:41
PROVIDERS: ATTEND Surgery Vascular Surgery
DX: I70.213 Atherosclerosis of native arteries of extremities with intermittent claudication, bilateral legs (principal); I70.92 Chronic total occlusion of artery of the extremities; I11.0 Hypertensive heart disease with heart failure; I50.9 Heart failure, unspecified; I65.23 Occlusion and stenosis of bilateral carotid arteries; E04.1 Nontoxic single thyroid nodule; E78.5 Hyperlipidemia, unspecified; F41.9 Anxiety disorder, unspecified; J45.909 Unspecified asthma, uncomplicated; K21.9 Gastro-esophageal reflux disease without esophagitis; G47.30 Sleep apnea, unspecified; Z79.82 Long term (current) use of aspirin; Z79.899 Other long term (current) drug therapy; Z87.891 Personal history of nicotine dependence; Z88.5 Allergy status to narcotic agent; Z91.048 Other nonmedicinal substance allergy status
CPT/HCPCS: 37221; 75630; 80053; 85027; 99152; 99153; C1725; C1760; C1769; C1876; C1887; C1894; J1644; J2250; J3010; Q9967

== ENCOUNTER → 2020-07-13 | Outpatient (CLI) | payer MEDICARE, OTHER ==
[~2020-07-13] MED LIST changes: -ISOVUE-300 61% 50ML VIAL As Ordered ONE; -LIDOCAINE 1% MDV 20ML VIAL As Ordered ONE; -MIDAZOLAM INJ 2MG/2ML VIAL (J2250 PER 1MG) As Ordered ONE; -fentaNYL 100 MCG/2 ML INJECTION (J3010) As Ordered ONE
--- NOTE | 2020-07-13 14:23 | REP ---
INDICATION: ATHEROSCLEROSIS W/ CLAUDICATION COMPARISON: 04/13/2020 TECHNIQUE: Real time childs scale and color Doppler evaluation of the bilateral lower extremity arterial vasculature using linear high frequency transducer. FINDINGS: The distal abdominal aorta above the level of bifurcation demonstrates velocity at 87 cm/sec. Right common iliac artery has a biphasic arterial wave pattern with a velocity of 159 cm/sec. The left common iliac artery demonstrates a somewhat blunted parvus tardus wave pattern with a maximal velocity at 92 cm/sec. Patient has known iliac arterial disease and stents which were not identifiable due to technical factors related to overlying bowel gas and body habitus. Right lower extremity demonstrates relatively increased velocity through the common femoral artery and biphasic arterial wave patterns. The right anterior tibial artery was not identifiable. No visible focal stenosis or occlusion identified. Left lower extremity demonstrates similar decreased velocities and monophasic wave patterns compared to prior examination. The left anterior tibial artery was not identifiable. No visible focal stenosis or occlusion identified. Peak systolic velocities (cm/sec) Common femoral artery: Right 149; Left 47 Profunda femoris: Right 126; Left 41 SFA (proximal): Right 141; Left 69 SFA (mid): Right 100; Left 60 SFA (distal): Right 102; Left 24 Popliteal artery: Right 88; Left 37 JANE (prox.): Right --; Left -- Tibioperoneal trunk: Right 60; Left 27 WELDING EQUIPMENT REPAIRER SUPERVISOR (prox.): Right 68; Left 34 WELDING EQUIPMENT REPAIRER SUPERVISOR (distal): Right 68; Left 25 JANE (distal): Right --; Left -- IMPRESSION: Atherosclerotic changes as described above are essentially unchanged as compared with 04/13/2020. <Electronically signed by Marlon Hubbard > 07/13/20 [id number]
== END ==
LOC: M RAD 10:36
PROVIDERS: ATTEND Physician Assistant
DX: I70.213 Atherosclerosis of native arteries of extremities with intermittent claudication, bilateral legs (principal); I10 Essential (primary) hypertension

== ENCOUNTER → 2020-08-19 | Outpatient (CLI) | payer MEDICARE, OTHER ==
--- NOTE | 2020-08-19 11:31 | REP ---
INDICATION: COPD, LUNG CANCER SCREENING. COMPARISON: Chest CT dated 09/24/[address] dated 07/22/2019. TECHNIQUE: The study is performed without IV contrast. Images are presented at lung windowing only. FINDINGS: There are multiple small lung nodules bilaterally, unchanged in size or number from both comparison studies. No new lung nodules are identified. No enlarging lung nodules are identified. There are no infiltrates or effusions. IMPRESSION: Category [address] low-dose lung screening CT of the chest. Probability of malignancy is less than 1%. Depending on risk factors, continued follow-up annual low-dose lung screening chest CT is recommended. <Electronically signed by Rogerio Adams > 08/19/20 [id number]
== END ==
LOC: M RAD 10:37
PROVIDERS: ATTEND Internal Medicine Pulmonary Disease
DX: Z12.2 Encounter for screening for malignant neoplasm of respiratory organs (principal); J44.9 Chronic obstructive pulmonary disease, unspecified; Z87.891 Personal history of nicotine dependence; R91.8 Other nonspecific abnormal finding of lung field

== ENCOUNTER → 2020-11-01 | Outpatient (REF) | payer MEDICARE, OTHER ==
[2020-11-01 14:00] LABS: ALBUMIN 3.2 GM/DL (3.2-5.2); ALT/SGPT 31 U/L (12-78); BILIRUBIN,TOTAL 0.4 MG/DL (0.2-1.0); BLOOD UREA NITROGEN 25 MG/DL (7-18); CALCIUM LEVEL 8.6 MG/DL (8.8-10.2); CARBON DIOXIDE LEVEL 29 MEQ/L (21-32); CHLORIDE LEVEL 109 MEQ/L (98-107); CHOLESTEROL LEVEL 117 MG/DL (<200); CREATININE FOR GFR 0.82 MG/DL (0.55-1.30); GLOMERULAR FILTRATION RATE > 60.0 (>39); GLUCOSE, FASTING 95 MG/DL (70-100); HDL CHOLESTEROL 30 MG/DL (>40); LDL CHOLESTEROL 56 MG/DL (<100); NON-HDL-C 87 MG/DL; POTASSIUM SERUM 4.6 MEQ/L (3.5-5.1); SODIUM LEVEL 143 MEQ/L (136-145); TRIGLYCERIDES LEVEL 156 MG/DL (<150)
== END ==
LOC: M PLALAB 13:02
PROVIDERS: ATTEND Physician Assistant Medical
DX: E78.2 Mixed hyperlipidemia (principal)

== ENCOUNTER → 2020-12-21 | Outpatient (CLI) | payer MEDICARE, OTHER ==
[2020-12-21 10:52] LABS: BLOOD UREA NITROGEN 19 MG/DL (7-18); CREATININE FOR GFR 0.96 MG/DL (0.55-1.30); GLOMERULAR FILTRATION RATE > 60.0 (>39)
== END ==
LOC: M PLALAB 08:42
PROVIDERS: ATTEND Surgery Vascular Surgery
DX: D69.8 Other specified hemorrhagic conditions (principal); Z01.818 Encounter for other preprocedural examination; I65.23 Occlusion and stenosis of bilateral carotid arteries

== ENCOUNTER → 2021-01-04 | Outpatient (CLI) | payer MEDICARE, OTHER ==
[~2021-01-04] MED LIST changes: +ISOVUE-370 76% 100ML VIAL As Ordered ONE
--- NOTE | 2021-01-04 15:21 | REPVR ---
PROCEDURE INFORMATION: Exam: CT Angiography Neck With Contrast Exam date and time: 01/04/2021 2:15 PM Age: 70 years old Clinical indication: Condition or disease; Other: Occlusion stenosis TECHNIQUE: Imaging protocol: Computed tomography angiography of the neck with contrast. 3D rendering (Not supervised by radiologist): MIP and/or 3D reconstructed images were created by the technologist. Radiation optimization: All CT scans at this facility use at least one of these dose optimization techniques: automated exposure control; mA and/or kV adjustment per patient size (includes targeted exams where dose is matched to clinical indication); or iterative reconstruction. Contrast material: ISO 370; Contrast volume: 75 ml; Contrast route: INTRAVENOUS (IV); COMPARISON: US Duplex,carotid (complete) 04/13/2020 1:13 PM FINDINGS: Right common carotid artery: Calcified atheromatous plaque at the origin of the right common carotid artery. Right internal carotid artery: There is extensive calcified atheromatous plaque in the right carotid bulb; The right ICA measures 2.6 mm at its origin series 401, image 72. More distally the right ICA measures 4.3 mm. There may be an ulcerated plaque in the proximal right ICA series 402, image 34. The calcified plaque measures 2.1 cm in length. Right external carotid artery: There is stenosis of the origin of the right external carotid artery. Series 401 image 78. Left common carotid artery: Calcified atheromatous plaque at the origin of the left common carotid artery. Left internal carotid artery: There is calcified atheromatous plaque in the left carotid bulb without significant stenosis of the left ICA. The plaque is approximately 2.3 cm in length. Left external carotid artery: There is stenosis of the origin of the left external carotid artery. Series 402, image 36. Right vertebral artery: There is atheromatous plaque at the origin of the right vertebral artery. The right vertebral artery is hypoplastic. Left vertebral artery: There is atheromatous plaque at the origin of the left vertebral artery. Soft tissues: Normal. No significant soft tissue swelling. Bones/joints: No acute fracture. IMPRESSION: 1. No significant stenosis proximal left ICA. 2. Mild stenosis proximal right ICA. REFERENCES: NASCET CRITERIA. The degree of internal carotid artery stenosis is based on NASCET criteria. Normal is no stenosis. Mild is less than 50% stenosis. Moderate is 50-69% stenosis. Severe is 70% to 99% stenosis. Total occlusion is no detectable patent lumen. Electronically signed by: Shanti Bennett On 01/04/2021 15:20:49 PM
== END ==
LOC: M RAD 12:59
PROVIDERS: ATTEND Surgery Vascular Surgery
DX: I65.23 Occlusion and stenosis of bilateral carotid arteries (principal)
CPT/HCPCS: 70498; Q9967

== ENCOUNTER → 2021-08-16 | Outpatient (REF) | payer MEDICARE, OTHER ==
[~2021-08-16] MED LIST changes: -ISOVUE-370 76% 100ML VIAL As Ordered ONE; +LOSA50TA28; -LOSA50TA88
[2021-08-16 13:02] LABS: HEMATOCRIT 39.6 % (36.0-47.0); HEMOGLOBIN 12.6 g/dl (12.0-15.5); MEAN CORPUSCULAR HEMOGLOBIN 29.9 pg (27.0-33.0); MEAN CORPUSCULAR HGB CONC 31.8 g/dl (32.0-36.5); MEAN CORPUSCULAR VOLUME 93.8 fl (80.0-96.0); PLATELET COUNT, AUTOMATED 215 10^3/uL (150-450); RED BLOOD COUNT 4.22 10^6/uL (4.00-5.40); WHITE BLOOD COUNT 6.7 10^3/uL (4.0-10.0)
[2021-08-16 13:40] LABS: ALBUMIN 3.2 GM/DL (3.2-5.2); BILIRUBIN,TOTAL 0.6 MG/DL (0.2-1.0); CHOLESTEROL RISK RATIO 3.896 (<5); CREATININE FOR GFR 1.03 MG/DL (0.55-1.30); GLOMERULAR FILTRATION RATE 55.9 (>39); POTASSIUM SERUM 3.8 MEQ/L (3.5-5.1)
== END ==
LOC: M LABDRWAD 12:28
PROVIDERS: ATTEND Physician Assistant
DX: I25.10 Atherosclerotic heart disease of native coronary artery without angina pectoris (principal); I10 Essential (primary) hypertension; E78.2 Mixed hyperlipidemia; I48.0 Paroxysmal atrial fibrillation; Z79.01 Long term (current) use of anticoagulants

== ENCOUNTER → 2021-08-16 | Outpatient (REF) | payer MEDICARE, OTHER ==
[2021-08-16 13:01] LABS: BASO # 0.1 10^3/uL (0.0-0.2); BASO % 1.1 % (0.0-1.0); EOS # 0.4 10^3/uL (0.0-0.5); EOS % 6.1 % (0.0-3.0); HEMOGLOBIN 12.6 g/dl (12.0-15.5); LYMPH # 1.6 10^3/uL (1.5-5.0); MEAN CORPUSCULAR HEMOGLOBIN 29.6 pg (27.0-33.0); MEAN CORPUSCULAR HGB CONC 31.5 g/dl (32.0-36.5); MEAN CORPUSCULAR VOLUME 93.9 fl (80.0-96.0); MONO # 0.4 10^3/uL (0.0-0.8); MONO % 6.4 % (2.0-8.0); NEUTROPHILS # 4.1 10^3/uL (1.5-8.5); NEUTROPHILS % 62.1 % (36.0-66.0); PLATELET COUNT, AUTOMATED 220 10^3/uL (150-450); RED BLOOD COUNT 4.26 10^6/uL (4.00-5.40); WHITE BLOOD COUNT 6.5 10^3/uL (4.0-10.0)
== END ==
LOC: M LABDRWAD 12:31
PROVIDERS: ATTEND Nurse Practitioner Family
DX: I10 Essential (primary) hypertension (principal); E78.2 Mixed hyperlipidemia; I48.0 Paroxysmal atrial fibrillation; Z79.01 Long term (current) use of anticoagulants; I25.10 Atherosclerotic heart disease of native coronary artery without angina pectoris

== ENCOUNTER → 2021-09-21 | Outpatient (CLI) | payer MEDICARE, OTHER | LOC: M RAD 13:32 | PROVIDERS: ATTEND Surgery Vascular Surgery | DX: I65.23 Occlusion and stenosis of bilateral carotid arteries (principal); Z95.5 Presence of coronary angioplasty implant and graft; Z95.820 Peripheral vascular angioplasty status with implants and grafts; Z79.01 Long term (current) use of anticoagulants ==

== ENCOUNTER → 2021-11-28 | Outpatient (CLI) | payer MEDICARE, OTHER ==
[2021-11-28 14:03] LABS: ALBUMIN 3.2 GM/DL (3.2-5.2); ALT/SGPT 39 U/L (12-78); BILIRUBIN,TOTAL 0.4 MG/DL (0.2-1.0); BLOOD UREA NITROGEN 14 MG/DL (7-18); CALCIUM LEVEL 9.1 MG/DL (8.8-10.2); CARBON DIOXIDE LEVEL 29 MEQ/L (21-32); CHLORIDE LEVEL 107 MEQ/L (98-107); CHOLESTEROL LEVEL 192 MG/DL (<200); CHOLESTEROL RISK RATIO 5.818 (<5); CREATININE FOR GFR 0.79 MG/DL (0.55-1.30); GLOMERULAR FILTRATION RATE > 60.0 (>39); GLUCOSE, FASTING 103 MG/DL (70-100); HDL CHOLESTEROL 33 MG/DL (>40); LDL CHOLESTEROL 99 MG/DL (<100); NON-HDL-C 159 MG/DL; POTASSIUM SERUM 3.5 MEQ/L (3.5-5.1); SODIUM LEVEL 141 MEQ/L (136-145); TRIGLYCERIDES LEVEL 302 MG/DL (<150)
== END ==
LOC: M ADAMS 10:59
PROVIDERS: ATTEND Nurse Practitioner Family
DX: E78.2 Mixed hyperlipidemia (principal)

== ENCOUNTER → 2021-11-30 | Outpatient (CLI) | payer MEDICARE, OTHER ==
[2021-11-30 13:13] LABS: BASO # 0.1 10^3/uL (0.0-0.2); BASO % 1.1 % (0.0-1.0); EOS # 0.4 10^3/uL (0.0-0.5); EOS % 6.8 % (0.0-3.0); HEMATOCRIT 43.1 % (36.0-47.0); HEMOGLOBIN 13.8 g/dl (12.0-15.5); LYMPH # 1.3 10^3/uL (1.5-5.0); LYMPH % 21.2 % (24.0-44.0); MEAN CORPUSCULAR HEMOGLOBIN 29.7 pg (27.0-33.0); MEAN CORPUSCULAR VOLUME 92.9 fl (80.0-96.0); MONO # 0.5 10^3/uL (0.0-0.8); MONO % 7.3 % (2.0-8.0); NEUTROPHILS % 63.4 % (36.0-66.0); PLATELET COUNT, AUTOMATED 226 10^3/uL (150-450); RED BLOOD COUNT 4.64 10^6/uL (4.00-5.40); WHITE BLOOD COUNT 6.3 10^3/uL (4.0-10.0)
[2021-11-30 13:30] LABS: FERRITIN 28 NG/ML (8-252); IRON (FE) 85 UG/DL (50-170); MAGNESIUM LEVEL 1.9 MG/DL (1.8-2.4); PERCENT SATURATION 30.6 % (13.2-45.0); TOTAL IRON BINDING CAPACITY 278 UG/DL (250-450)
[2021-11-30 13:43] LABS: ERYTHROCYTE SEDIMENTATION RATE 45 mm/hr (0-30)
[2021-11-30 14:02] LABS: TOTAL 25(OH) VITAMIN D 37.1 NG/ML (30.0-100.0)
[2021-11-30 14:03] LABS: VITAMIN B12 LEVEL 245 PG/ML
[2021-11-30 14:04] LABS: FOLATE > 24.0 NG/ML
== END ==
LOC: M ADAMS 09:45
PROVIDERS: ATTEND Nurse Practitioner Family
DX: R20.2 Paresthesia of skin (principal)

== ENCOUNTER → 2022-03-02 | Outpatient (CLI) | payer MEDICARE, OTHER | LOC: M WHC 10:39 | PROVIDERS: ATTEND Nurse Practitioner Family | DX: Z12.31 Encounter for screening mammogram for malignant neoplasm of breast (principal); M85.9 Disorder of bone density and structure, unspecified ==

== ENCOUNTER → 2022-04-10 | Outpatient (CLI) | payer MEDICARE, OTHER | LOC: M WHC 09:04 | PROVIDERS: ATTEND Nurse Practitioner Family | DX: Z13.820 Encounter for screening for osteoporosis (principal); M85.851 Other specified disorders of bone density and structure, right thigh; M85.852 Other specified disorders of bone density and structure, left thigh ==

== ENCOUNTER → 2022-04-11 | Outpatient (REF) | payer MEDICARE, OTHER | LOC: M LAB REF 16:47 | PROVIDERS: ATTEND Nurse Practitioner Family | DX: R30.0 Dysuria (principal) ==

== ENCOUNTER → 2022-07-03 | Outpatient (CLI) | payer MEDICARE, OTHER | LOC: M PLAIMG 11:46 | PROVIDERS: ATTEND Nurse Practitioner Family | DX: R91.8 Other nonspecific abnormal finding of lung field (principal); U07.1 COVID-19 ==

== ENCOUNTER 2022-10-08 07:13 | Emergency (ER) | payer MEDICARE, OTHER ==
[~2022-10-08] VITALS: Ht 170.2 cm; Wt 118.2 kg
[2022-10-08] MEDS ORDERED: LIDOCAINE 5% (LIDODERM) PATCH TD ONE (10:35)
[2022-10-08] MEDS ORDERED: methylPREDNISolone 125MG 2ML VIAL IV ONE (10:35)
[2022-10-08] MEDS ORDERED: methylPREDNISolone 125MG 2ML VIAL IM ONE (10:35)
[2022-10-08] MEDS ORDERED: NORCO, ANEXSIA 5/325MG TABLET (HYDROcodone/ACETAMINOPHEN) PO ONE (10:35)
[2022-10-08] MEDS ORDERED: methocarbamoL 750 MG TAB PO ONE (10:35)
[2022-10-08] MEDS ORDERED: ASPE4PAD TOP (12:02)
[2022-10-08] MEDS ORDERED: HYDR-3713 PO (12:02)
[2022-10-08] MEDS ORDERED: METH-1165 PO (12:02)
[2022-10-08 12:20] VITALS: BP 200/85
== END 2022-10-08 12:23 | disposition home or self-care (01) ==
LOC: M ED 07:13
DX: M54.50 Low back pain, unspecified (principal); M54.16 Radiculopathy, lumbar region; I10 Essential (primary) hypertension; E78.5 Hyperlipidemia, unspecified; K21.9 Gastro-esophageal reflux disease without esophagitis; Z79.01 Long term (current) use of anticoagulants; Z88.7 Allergy status to serum and vaccine; Z88.5 Allergy status to narcotic agent; Z79.82 Long term (current) use of aspirin; Z79.899 Other long term (current) drug therapy
CPT/HCPCS: 81001; 87086; 96372; 96374; 99283; J2930

== ENCOUNTER → 2022-10-25 | Outpatient (CLI) | payer MEDICARE, OTHER ==
[~2022-10-25] MED LIST changes: +ASPE4PAD TOP; +HYDR-3713 PO; +METH-1165 PO
[2022-10-25 14:27] LABS: HEMATOCRIT 46.4 % (36.0-47.0); HEMOGLOBIN 14.8 g/dl (12.0-15.5); MEAN CORPUSCULAR HEMOGLOBIN 30.3 pg (27.0-33.0); MEAN CORPUSCULAR HGB CONC 31.9 g/dl (32.0-36.5); MEAN CORPUSCULAR VOLUME 94.9 fl (80.0-96.0); PLATELET COUNT, AUTOMATED 213 10^3/uL (150-450); RED BLOOD COUNT 4.89 10^6/uL (4.00-5.40)
[2022-10-25 14:30] LABS: ALBUMIN 3.6 G/DL (3.2-5.2); ALKALINE PHOSPHATASE 117 U/L (46-116); ALT/SGPT 28 U/L (7.0-40); AST/SGOT 16 U/L (<34); BILIRUBIN,TOTAL 0.5 MG/DL (0.3-1.2); BLOOD UREA NITROGEN 15 MG/DL (9-23); CALCIUM LEVEL 9.7 MG/DL (8.3-10.6); CARBON DIOXIDE LEVEL 31 MMOL/L (20-31); CHLORIDE LEVEL 104 MMOL/L (98-107); CHOLESTEROL LEVEL 199 MG/DL (<200); CHOLESTEROL RISK RATIO 6.83 (<5); CREATININE FOR GFR 0.76 MG/DL (0.55-1.30); GLOMERULAR FILTRATION RATE > 60.0 (>39); GLUCOSE, FASTING 92 MG/DL (74-106); HDL CHOLESTEROL 29.1 MG/DL (>40); MAGNESIUM LEVEL 1.8 MG/DL (1.8-2.4); NON-HDL-C 169.9 MG/DL; POTASSIUM SERUM 4.2 MMOL/L (3.5-5.1); SODIUM LEVEL 142 MMOL/L (136-145); TOTAL PROTEIN 7.2 G/DL (5.7-8.2); TRIGLYCERIDES LEVEL 400 MG/DL (<150)
== END ==
LOC: M PLALAB 10:13
PROVIDERS: ATTEND Physician Assistant
DX: I48.0 Paroxysmal atrial fibrillation (principal); I50.32 Chronic diastolic (congestive) heart failure; E78.2 Mixed hyperlipidemia

== ENCOUNTER → 2022-11-27 | Outpatient (CLI) | payer MEDICARE, OTHER | LOC: M PLAIMG 09:58 | PROVIDERS: ATTEND Internal Medicine Pulmonary Disease | DX: J45.40 Moderate persistent asthma, uncomplicated (principal); E78.00 Pure hypercholesterolemia, unspecified; E78.2 Mixed hyperlipidemia; I48.0 Paroxysmal atrial fibrillation; I50.32 Chronic diastolic (congestive) heart failure ==

== ENCOUNTER → 2022-11-27 | Outpatient (CLI) | payer MEDICARE, OTHER ==
[2022-11-27 15:02] LABS: ALBUMIN 3.3 G/DL (3.2-5.2); ALKALINE PHOSPHATASE 123 U/L (46-116); ALT/SGPT 28 U/L (7.0-40); AST/SGOT 18 U/L (<34); BILIRUBIN,TOTAL 0.6 MG/DL (0.3-1.2); BLOOD UREA NITROGEN 17 MG/DL (9-23); CALCIUM LEVEL 8.8 MG/DL (8.3-10.6); CARBON DIOXIDE LEVEL 32 MMOL/L (20-31); CHLORIDE LEVEL 104 MMOL/L (98-107); CHOLESTEROL LEVEL 112 MG/DL (<200); CHOLESTEROL RISK RATIO 4.05 (<5); CREATININE FOR GFR 0.82 MG/DL (0.55-1.30); GLOMERULAR FILTRATION RATE > 60.0 (>39); GLUCOSE, FASTING 91 MG/DL (74-106); HDL CHOLESTEROL 27.6 MG/DL (>40); NON-HDL-C 84.4 MG/DL; POTASSIUM SERUM 3.7 MMOL/L (3.5-5.1); SODIUM LEVEL 143 MMOL/L (136-145); TOTAL PROTEIN 6.6 G/DL (5.7-8.2); TRIGLYCERIDES LEVEL 197 MG/DL (<150)
== END ==
LOC: M PLALAB 10:00
PROVIDERS: ATTEND Physician Assistant
DX: E78.2 Mixed hyperlipidemia (principal); I48.0 Paroxysmal atrial fibrillation; I50.32 Chronic diastolic (congestive) heart failure

== ENCOUNTER → 2023-01-29 | Outpatient (CLI) | payer MEDICARE, OTHER | LOC: M RAD 10:48 | PROVIDERS: ATTEND Physician Assistant | DX: I65.23 Occlusion and stenosis of bilateral carotid arteries (principal) ==

== ENCOUNTER → 2023-09-17 | Outpatient (CLI) | payer MEDICARE, OTHER ==
[2023-09-17 12:29] LABS: BASO # 0.1 10^3/uL (0.0-0.2); EOS # 0.8 10^3/uL (0.0-0.5); EOS % 11.3 % (0.0-3.0); HEMOGLOBIN 13.6 g/dl (12.0-15.5); LYMPH # 1.4 10^3/uL (1.5-5.0); MEAN CORPUSCULAR HEMOGLOBIN 29.8 pg (27.0-33.0); MEAN CORPUSCULAR HGB CONC 32.4 g/dl (32.0-36.5); MEAN CORPUSCULAR VOLUME 91.9 fl (80.0-96.0); MONO # 0.4 10^3/uL (0.0-0.8); MONO % 6.1 % (2.0-8.0); NEUTROPHILS # 4.4 10^3/uL (1.5-8.5); NEUTROPHILS % 62.5 % (36.0-66.0); PLATELET COUNT, AUTOMATED 252 10^3/uL (150-450); RED BLOOD COUNT 4.57 10^6/uL (4.00-5.40); WHITE BLOOD COUNT 7.1 10^3/uL (4.0-10.0)
[2023-09-17 12:53] LABS: THYROID STIMULATING HORMONE 2.646 uIU/ML (0.55-4.78)
[2023-09-17 12:54] LABS: C REACTIVE PROTEIN QUANTITATIV < 0.40 MG/DL (<1.0); FERRITIN 21.5 NG/ML (7.3-270.7); IRON (FE) 64 UG/DL (50-170); TOTAL 25(OH) VITAMIN D 48.3 NG/ML (20.0-100.0)
[2023-09-17 12:55] LABS: ALKALINE PHOSPHATASE 107 U/L (46-116); ALT/SGPT 28 U/L (7.0-40); AST/SGOT 21 U/L (<34); BILIRUBIN,TOTAL 0.5 MG/DL (0.3-1.2); BLOOD UREA NITROGEN 22 MG/DL (9-23); CARBON DIOXIDE LEVEL 30 MMOL/L (20-31); CHLORIDE LEVEL 106 MMOL/L (98-107); CPK CREATINE PHOSPHOKINASE 46 U/L (34-145); CREATININE FOR GFR 0.74 MG/DL (0.55-1.30); FOLATE > 24.0 NG/ML (>5.4); FREE T4 1.02 NG/DL (0.89-1.76); GLOMERULAR FILTRATION RATE > 60.0 (>39); GLUCOSE, FASTING 86 MG/DL (74-106); POTASSIUM SERUM 4.1 MMOL/L (3.5-5.1); SODIUM LEVEL 144 MMOL/L (136-145); TOTAL IRON BINDING CAPACITY 305 UG/DL (250-425)
[2023-09-17 12:56] LABS: VITAMIN B12 LEVEL 268 PG/ML (211-911)
[2023-09-17 12:59] LABS: FREE T3 3.3 PG/ML (2.3-4.2); THYROID PEROXIDASE ANTIBODY 39 U/ML (<60.0)
== END ==
LOC: M LAB 09:22
PROVIDERS: ATTEND Nurse Practitioner Family
DX: R53.83 Other fatigue (principal); D50.9 Iron deficiency anemia, unspecified

== ENCOUNTER → 2023-09-25 | Outpatient (CLI) | payer MEDICARE, OTHER | LOC: M RAD 11:52 | PROVIDERS: ATTEND Nurse Practitioner Family | DX: G62.9 Polyneuropathy, unspecified (principal) ==

== ENCOUNTER → 2023-11-21 | Outpatient (CLI) | payer MEDICARE, OTHER ==
[~2023-11-21] MED LIST changes: +ISOVUE-370 76% 100ML VIAL As Ordered ONE
== END ==
LOC: M RAD 13:57
PROVIDERS: ATTEND Surgery Vascular Surgery
DX: I70.0 Atherosclerosis of aorta (principal); I73.9 Peripheral vascular disease, unspecified; K76.0 Fatty (change of) liver, not elsewhere classified; R16.0 Hepatomegaly, not elsewhere classified; R91.8 Other nonspecific abnormal finding of lung field
CPT/HCPCS: 75635; Q9967

== ENCOUNTER → 2023-12-03 | Outpatient (CLI) | payer MEDICARE, OTHER ==
[~2023-12-03] MED LIST changes: -ISOVUE-370 76% 100ML VIAL As Ordered ONE
== END ==
LOC: M PLAIMG 10:40
PROVIDERS: ATTEND Nurse Practitioner Family
DX: R05.9 Cough, unspecified (principal)

== ENCOUNTER → 2023-12-04 | Outpatient (CLI) | payer MEDICARE, OTHER ==
[2023-12-04 18:46] LABS: BLOOD UREA NITROGEN 16 MG/DL (9-23); CALCIUM LEVEL 9.3 MG/DL (8.3-10.6); CARBON DIOXIDE LEVEL 33 MMOL/L (20-31); CHLORIDE LEVEL 106 MMOL/L (98-107); CREATININE FOR GFR 0.79 MG/DL (0.55-1.30); GLOMERULAR FILTRATION RATE > 60.0 (>39); GLUCOSE, FASTING 88 MG/DL (74-106); POTASSIUM SERUM 4.1 MMOL/L (3.5-5.1); SODIUM LEVEL 142 MMOL/L (136-145)
== END ==
LOC: M PLALAB 15:21
PROVIDERS: ATTEND Physician Assistant
DX: I50.30 Unspecified diastolic (congestive) heart failure (principal)

== ENCOUNTER → 2023-12-24 | Outpatient (CLI) | payer MEDICARE, OTHER | LOC: M PLAIMG 14:23 | PROVIDERS: ATTEND Physician Assistant | DX: I50.32 Chronic diastolic (congestive) heart failure (principal); I08.3 Combined rheumatic disorders of mitral, aortic and tricuspid valves ==

== ENCOUNTER → 2024-07-09 | Outpatient (CLI) | payer MEDICARE, OTHER | LOC: M LAB 10:43 | PROVIDERS: ATTEND Ophthalmology Retina Specialist | DX: M31.6 Other giant cell arteritis (principal) ==

== ENCOUNTER → 2024-07-11 | Outpatient (CLI) | payer MEDICARE, OTHER ==
[2024-07-11 09:25] LABS: BASO # 0.1 10^3/uL (0.0-0.2); BASO % 0.9 % (0.0-1.0); EOS # 0.9 10^3/uL (0.0-0.5); EOS % 12.9 % (0.0-3.0); HEMATOCRIT 43.3 % (36.0-47.0); HEMOGLOBIN 13.6 g/dl (12.0-15.5); LYMPH # 1.4 10^3/uL (1.5-5.0); LYMPH % 20.1 % (24.0-44.0); MEAN CORPUSCULAR HEMOGLOBIN 28.9 pg (27.0-33.0); MEAN CORPUSCULAR HGB CONC 31.4 g/dl (32.0-36.5); MEAN CORPUSCULAR VOLUME 91.9 fl (80.0-96.0); MONO # 0.4 10^3/uL (0.0-0.8); MONO % 5.9 % (2.0-8.0); NEUTROPHILS # 4.1 10^3/uL (1.5-8.5); NEUTROPHILS % 59.9 % (36.0-66.0); PLATELET COUNT, AUTOMATED 251 10^3/uL (150-450); RED BLOOD COUNT 4.71 10^6/uL (4.00-5.40); WHITE BLOOD COUNT 6.9 10^3/uL (4.0-10.0)
[2024-07-11 09:30] LABS: ERYTHROCYTE SEDIMENTATION RATE 66 mm/hr (0-30)
[2024-07-11 09:46] LABS: C REACTIVE PROTEIN QUANTITATIV < 0.50 MG/DL (<1.0)
[2024-07-11 09:47] LABS: ALBUMIN 3.1 G/DL (3.2-5.2); ALKALINE PHOSPHATASE 136 U/L (35-104); ALT/SGPT 26 U/L (7.0-40); AST/SGOT 17 U/L (<34); BILIRUBIN,TOTAL 0.5 MG/DL (0.3-1.2); BLOOD UREA NITROGEN 20 MG/DL (9-23); CARBON DIOXIDE LEVEL 30 MMOL/L (20-31); CHLORIDE LEVEL 108 MMOL/L (98-107); CREATININE FOR GFR 0.75 MG/DL (0.55-1.30); GLOMERULAR FILTRATION RATE > 60.0 (>39); GLUCOSE, FASTING 89 MG/DL (74-106); SODIUM LEVEL 146 MMOL/L (136-145); TOTAL PROTEIN 7.2 G/DL (5.7-8.2)
== END ==
LOC: M LAB 08:33
PROVIDERS: ATTEND Nurse Practitioner Family
DX: R51.9 Headache, unspecified (principal)

== ENCOUNTER 2024-07-23 10:27 | Emergency (ER) | payer MEDICARE, OTHER ==
[~2024-07-23] VITALS: Ht 170.2 cm; Wt 113.6 kg
[~2024-07-23 10:27] MED LIST changes: -CHLO125TA; +CHLO125TA PO; -ELIQ5TAB; +ELIQ5TAB PO; -METO50TA7; +METO50TA7 PO; -SPIR-10; +SPIR-10 PO; -TRAM50TA2; +TRAM50TA2 PO
[2024-07-23] MEDS ORDERED: ISOVUE-370 76% 100ML VIAL As Ordered ONE (11:26)
[2024-07-23 11:28] LABS: BASO % 0.1 % (0.0-1.0); EOS # 0.4 10^3/uL (0.0-0.5); EOS % 3.1 % (0.0-3.0); HEMATOCRIT 44.5 % (36.0-47.0); LYMPH # 1.5 10^3/uL (1.5-5.0); LYMPH % 11.2 % (24.0-44.0); MEAN CORPUSCULAR HEMOGLOBIN 29.3 pg (27.0-33.0); MEAN CORPUSCULAR HGB CONC 31.5 g/dl (32.0-36.5); MEAN CORPUSCULAR VOLUME 93.1 fl (80.0-96.0); MONO % 7.4 % (2.0-8.0); NEUTROPHILS # 10.2 10^3/uL (1.5-8.5); NEUTROPHILS % 77.6 % (36.0-66.0); PLATELET COUNT, AUTOMATED 244 10^3/uL (150-450); RED BLOOD COUNT 4.78 10^6/uL (4.00-5.40); WHITE BLOOD COUNT 13.2 10^3/uL (4.0-10.0)
[2024-07-23 11:45] LABS: LIPASE 32 U/L (12-53)
[2024-07-23 11:47] LABS: ALBUMIN 2.8 G/DL (3.2-5.2); ALKALINE PHOSPHATASE 113 U/L (35-104); ALT/SGPT 30 U/L (7.0-40); AST/SGOT 16 U/L (<34); BILIRUBIN,DIRECT 0.1 MG/DL (<0.4); BILIRUBIN,TOTAL 0.6 MG/DL (0.3-1.2); BLOOD UREA NITROGEN 26 MG/DL (9-23); CALCIUM LEVEL 8.3 MG/DL (8.3-10.6); CARBON DIOXIDE LEVEL 30 MMOL/L (20-31); CHLORIDE LEVEL 105 MMOL/L (98-107); CK-MB VALUE MASS < 1.0 NG/ML (<3.6); CREATININE FOR GFR 0.84 MG/DL (0.55-1.30); GLOMERULAR FILTRATION RATE > 60.0 (>39); GLUCOSE, FASTING 98 MG/DL (74-106); SODIUM LEVEL 142 MMOL/L (136-145); TOTAL PROTEIN 6.3 G/DL (5.7-8.2)
[2024-07-23 11:48] LABS: THYROID STIMULATING HORMONE 2.408 uIU/ML (0.55-4.78)
[2024-07-23 11:52] LABS: CPK CREATINE PHOSPHOKINASE 21 U/L (34-145); MB/CK RELATIVE INDEX 4.76 (< OR =4)
[2024-07-23 12:58] LABS: CK-MB VALUE MASS < 1.0 NG/ML (<3.6)
[2024-07-23 13:01] LABS: CPK CREATINE PHOSPHOKINASE 32 U/L (34-145); MB/CK RELATIVE INDEX 3.12 (< OR =4)
[2024-07-23] MEDS: NS 500 ML IV ONE (14:02)
[2024-07-23] MEDS ORDERED: LOSA100T46 PO (14:06)
[2024-07-23] MEDS ORDERED: TRAZ-252 PO (14:06)
[2024-07-23] MEDS ORDERED: ASPI81TA26 PO (14:06)
[2024-07-23] MEDS ORDERED: HYDR-3713 PO (14:06)
[2024-07-23] MEDS ORDERED: VITA200035 PO (14:06)
[2024-07-23] MEDS ORDERED: MULT-40 PO (14:06)
[2024-07-23] MEDS ORDERED: VASC1CAP2 PO (14:06)
[2024-07-23] MEDS ORDERED: PANT40TA29 PO (14:06)
[2024-07-23] MEDS ORDERED: AMLO1TAB24 PO (14:06)
[2024-07-23] MEDS ORDERED: DOXY100T27 PO (14:06)
[2024-07-23] MEDS ORDERED: PRED20TA PO (14:06)
[2024-07-23] MEDS ORDERED: ATOR80TA59 PO (14:06)
[2024-07-23] MEDS ORDERED: HOME MED LIST COMPLETE! XX SCH (14:10)
[2024-07-23 14:31] LABS: KETONE, URINE AUTO RFX NEGATIVE (NEGATIVE); LEUKOCYTE ESTERASE UR AUTO RFX NEGATIVE (NEGATIVE); NITRITE, URINE AUTO RFX NEGATIVE (NEGATIVE); RBC, URINE AUTO RFX 0 /HPF (0-3); SQUAM EPITHELIAL CELL UR AURFX 0 /HPF (0-6); WBC, URINE AUTO RFX 0 /HPF (0-3)
[2024-07-23] MEDS ORDERED: LACT20EL PO (14:38)
[2024-07-23] MEDS ORDERED: FLEEENE12 PR (14:39)
[2024-07-23 14:54] VITALS: BP 183/76; TEMP 96.8; O2SAT 96
== END 2024-07-23 14:56 | disposition home or self-care (01) ==
LOC: M ED 11:44
DX: R10.9 Unspecified abdominal pain (principal); N39.0 Urinary tract infection, site not specified; J18.9 Pneumonia, unspecified organism; R91.8 Other nonspecific abnormal finding of lung field; I10 Essential (primary) hypertension; E78.5 Hyperlipidemia, unspecified; M54.9 Dorsalgia, unspecified; Z79.01 Long term (current) use of anticoagulants; Z79.899 Other long term (current) drug therapy; Z88.7 Allergy status to serum and vaccine; Z88.5 Allergy status to narcotic agent
CPT/HCPCS: 71045; 71275; 74177; 80047; 80048; 80076; 81001; 82550; 82553; 83690; 84443; 84484; 85025; 93005; 93041; 94760; 96360; 99285; Q9967

== ENCOUNTER → 2024-08-04 | Outpatient (CLI) | payer MEDICARE, OTHER ==
[~2024-08-04] MED LIST changes: +AMLO1TAB24 PO; +ASPI81TA26 PO; +ATOR80TA59 PO; +DOXY100T27 PO; +FLEEENE12 PR; +LACT20EL PO; +LOSA100T46 PO; +MULT-40 PO; +PANT40TA29 PO; +PRED20TA PO; +TRAZ-252 PO; +VASC1CAP2 PO; +VITA200035 PO
== END ==
LOC: M PLAIMG 09:38
PROVIDERS: ATTEND Nurse Practitioner Family
DX: J15.9 Unspecified bacterial pneumonia (principal)

== ENCOUNTER → 2024-09-03 | Outpatient (CLI) | payer MEDICARE, OTHER | LOC: M WHC 08:56 | PROVIDERS: ATTEND Nurse Practitioner Family | DX: Z12.31 Encounter for screening mammogram for malignant neoplasm of breast (principal); Z13.820 Encounter for screening for osteoporosis; M85.89 Other specified disorders of bone density and structure, multiple sites ==

== ENCOUNTER → 2024-12-09 | Outpatient (CLI) | payer MEDICARE, OTHER ==
[2024-12-09 13:44] LABS: CREATININE FOR GFR 0.84 MG/DL (0.55-1.30); GLOMERULAR FILTRATION RATE 72.0 (>39)
== END ==
LOC: M LAB 12:18
PROVIDERS: ATTEND Physician Assistant
DX: I73.9 Peripheral vascular disease, unspecified (principal)

== ENCOUNTER → 2024-12-11 | Outpatient (CLI) | payer MEDICARE, OTHER ==
[~2024-12-11] MED LIST changes: +ISOVUE-370 76% 100 ML VIAL As Ordered ONE
== END ==
LOC: M RAD 14:28
PROVIDERS: ATTEND Surgery Vascular Surgery
DX: I73.9 Peripheral vascular disease, unspecified (principal); I70.1 Atherosclerosis of renal artery; I77.4 Celiac artery compression syndrome; K55.1 Chronic vascular disorders of intestine; Z95.820 Peripheral vascular angioplasty status with implants and grafts; Z90.49 Acquired absence of other specified parts of digestive tract; M47.815 Spondylosis without myelopathy or radiculopathy, thoracolumbar region; M16.0 Bilateral primary osteoarthritis of hip
CPT/HCPCS: 75635; Q9967